=== PATIENT | female | born 1960 | race Caucasian/White ===

== ENCOUNTER → 2018-06-25 | Outpatient (CLI) | payer OTHER ==
[~2018-06-25] MED LIST: PER PO; TAM4 PO
--- NOTE | 2018-06-25 14:59 | RADIOLOGY IMAGING REPORT ---
FACILITY: [facility] PATIENT NAME: EMANUEL CESAR : [id number] MR: [id number] V: [id number] EXAM DATE: ORDERING PHYSICIAN: JONES WILHELM TECHNOLOGIST: Zainab Sheriff PROCEDURE:BILATERAL DIGITAL SCREENING MAMMOGRAM WITH CAD ASSISTED INTERPRETATION & 3D TOMOSYNTHESIS COMPARISON:Prior mammograms 01/06/17, 08/03/15, 10/06/14, 09/15/13, 09/02/12. INDICATIONS:SCREENING FINDINGS: Small amount of fibroglandular tissue is seen throughout the breasts. The parenchymal pattern has remained stable allowing for difference in mammographic technique & patient positioning. There is no evidence of malignant appearing mass, malignant appearing calcifications or other secondary sign of malignancy in either breast. Biopsy clips in the upper outer quadrant of the Left breast again seen. DIAGNOSTIC CATEGORY 2--BENIGN FINDING. RECOMMENDATIONS: ROUTINE MAMMOGRAM AND CLINICAL EVALUATION. IMPRESSION: BIRADS 2: Benign finding. No significant abnormality is seen. Dictated by: Lilo Marshall M.D. on 06/25/2018 at 14:15 Transcribed by: ACOSTA on 06/25/2018 at 14:32 Approved by: Lilo Marshall M.D. on 06/25/2018 at 14:59 [facility]
== END ==
LOC: MAMO 02:28
PROVIDERS: ATTEND Obstetrics & Gynecology
DX: Z12.31 Encounter for screening mammogram for malignant neoplasm of breast (principal)
CPT/HCPCS: 77063; 77067

== ENCOUNTER → 2019-03-26 | Outpatient (CLI) | payer OTHER ==
--- NOTE | 2019-03-26 14:18 | RADIOLOGY IMAGING REPORT ---
FACILITY: [facility] [place] PATIENT NAME: Felicia Gallo : 1960 MR: [id number] V: [id number] EXAM DATE: ORDERING PHYSICIAN: REUBEN CARDENAS TECHNOLOGIST: Location: [facility] Patient: Felicia Gallo : 1960 Visit/Account:[id number] Date of Sevice: 03/26/2019 DEXA Scan Clinical history: Osteopenia. Comparison: DEXA scan from 08/03/2015. LUMBAR SPINE: The bone mineral density (BMD) measured from L1-L4 correlates with a Z-score -1.8 and a T-score of - 2.1 which is osteoporosis as defined by the World Health Organization. The corresponding risk of fra cture in the lumbar spine is high compared with a young adult reference population. This value has d ecrease by 2.7 % since the prior study. More than 5% change is considered significant. HIP: Bone mineral density (BMD) measured in the Left femoral neck region correlates with a Z-score -0.6 an d a T-score of -1.9 which is osteopenia as defined by the World Health Organization. The correspon ding risk of fracture in the hip is increased compared with a young adult reference population. The t otal hip value has decreased by 0.9 % since the prior study. More than 5% change is considered signi ficant. Bone mineral density (BMD) measured in the Femoral Neck region measures 0.767 g/cm2. IMPRESSION: 1. Lumbar spine: Osteoporosis. There has been decrease in the bone mineral density since the previo us exam. 2. Left femoral neck region: Osteopenia. There has been decrease in the bone mineral density of the total hip since the previous exam. 3. Femoral Neck: Bone Mineral Density is 0.767 g/cm2 The next DEXA scan of this patient should include the following sites: L1-L4 and the left hip. FRAX? WHO Fracture Risk Assessment Tool link: <http://www.shef.ac.uk/FRAX/tool.jsp?locationValue=9> PLEASE NOTE: 1) The World Health Organization defines low BMD as follows: T-score Normal > -1 Osteopenia < -1 and > -2.5 Osteoporosis < -2.5 without fractures Established osteoporosis < -2.5 with fractures 2) In general, you may wish to consider: Diagnosis Treatment Follow-up DEXA Normal BMD Prevention 2-3 years Osteopenia Prevention/therapy 1-2 years Osteoporosis Therapy Yearly 3) Fracture risk estimated from the T-score is more accurate for vertebral fractures (often spontane ous) than for hip fractures. Report Dictated By: Eder Emanuel at 03/26/2019 2:11 PM Report E-Signed By: Eder Emanuel at 03/26/2019 2:13 PM WSN:[id number]
--- NOTE | 2019-03-26 15:48 | RADIOLOGY IMAGING REPORT ---
FACILITY: [facility] PATIENT NAME: MEANUEL CESAR : [id number] MR: [id number] V: [id number] EXAM DATE: ORDERING PHYSICIAN: REUBEN CARDENAS TECHNOLOGIST: Zainab Sheriff PROCEDURE:BILATERAL DIAGNOSTIC DIGITAL MAMMOGRAM WITH CAD ASSISTED INTERPRETATION & 3D TOMOSYNTHESIS REASON FOR STUDY: Left lateral breast pain FAMILY HISTORY OF BREAST CANCER: None BREAST PROCEDURES/TREATMENTS: Bilateral benign surgical biopsies COMPARISON STUDIES: 06/25/18, 01/06/17, 08/03/15, 10/06/14, 09/15/13, 09/02/12 MAMMOGRAM VIEWS OBTAINED: Bilateral full field 2D & 3D CC & MLO BREAST DENSITY: The breasts are heterogeneously dense which can obscure small masses. MAMMOGRAM FINDINGS: There are scattered round calcifications throughout the upper outer quadrants of both breasts that appear relatively stable. There is a biopsy clip in the upper outer quadrant of the Right breast in the middle to posterior third & 2 biopsy clips in the upper outer quadrant of the Left breast in the middle third. The parenchymal pattern has remained stable allowing for difference in mammographic technique & patient positioning. ULTRASOUND AREA SCANNED: The lateral portion of the Left breast from the 12 -6 o'clock position. ULTRASOUND FINDINGS: There is a biopsy clip in the 4 o'clock position Left breast. No other sonographic abnormality of the Left breast is seen. DIAGNOSTIC CATEGORY 2--BENIGN FINDING. RECOMMENDATIONS: ROUTINE MAMMOGRAM AND CLINICAL EVALUATION. ASSESSMENT: BIRADS 2: Benign findings. Clinical follow up recommended for patient's Left breast pain. Dictated by: Lilo Marshall M.D. on 03/26/2019 at 12:27 Transcribed by: MACI on 03/26/2019 at 15:08 Approved by: Lilo Marshall M.D. on 03/26/2019 at 15:47 [facility]
--- NOTE | 2019-03-26 15:48 | RADIOLOGY IMAGING REPORT ---
FACILITY: [facility] PATIENT NAME: EMANUEL CESAR : [id number] MR: [id number] V: [id number] EXAM DATE: ORDERING PHYSICIAN: REUBEN CARDENAS TECHNOLOGIST: Amber Healy RT(R)(CT) PROCEDURE:BILATERAL DIAGNOSTIC DIGITAL MAMMOGRAM WITH CAD ASSISTED INTERPRETATION & 3D TOMOSYNTHESIS REASON FOR STUDY: Left lateral breast pain FAMILY HISTORY OF BREAST CANCER: None BREAST PROCEDURES/TREATMENTS: Bilateral benign surgical biopsies COMPARISON STUDIES: 06/25/18, 01/06/17, 08/03/15, 10/06/14, 09/15/13, 09/02/12 MAMMOGRAM VIEWS OBTAINED: Bilateral full field 2D & 3D CC & MLO BREAST DENSITY: The breasts are heterogeneously dense which can obscure small masses. MAMMOGRAM FINDINGS: There are scattered round calcifications throughout the upper outer quadrants of both breasts that appear relatively stable. There is a biopsy clip in the upper outer quadrant of the Right breast in the middle to posterior third & 2 biopsy clips in the upper outer quadrant of the Left breast in the middle third. The parenchymal pattern has remained stable allowing for difference in mammographic technique & patient positioning. ULTRASOUND AREA SCANNED: The lateral portion of the Left breast from the 12 -6 o'clock position. ULTRASOUND FINDINGS: There is a biopsy clip in the 4 o'clock position Left breast. No other sonographic abnormality of the Left breast is seen. DIAGNOSTIC CATEGORY 2--BENIGN FINDING. RECOMMENDATIONS: ROUTINE MAMMOGRAM AND CLINICAL EVALUATION. ASSESSMENT: BIRADS 2: Benign findings. Clinical follow up recommended for patient's Left breast pain. Dictated by: Lilo Marshall M.D. on 03/26/2019 at 12:27 [facility] Approved by: Lilo Marshall M.D. on 03/26/2019 at 15:47
== END ==
LOC: US 00:30
PROVIDERS: ATTEND Nurse Practitioner Family
DX: M85.88 Other specified disorders of bone density and structure, other site (principal)
CPT/HCPCS: 77062; 77066; 77080